=== PATIENT | female | born 1985 | race Caucasian/White ===

== ENCOUNTER 2017-08-16 15:59 | Emergency (ER) | payer OTHER ==
[~2017-08-16] VITALS: Ht 167.6 cm; Wt 90.7 kg
[~2017-08-16 15:59] MED LIST: FISH OIL 1,0001 EAC5; FOLIC ACID; HEPARIN; IBUPROFEN 600600 M1 PO; LOPRESSOR25; METOPROLOL PO; NOHOMEMEDICATIONS; NORCO 5-325 TA1 EACH PO; PRENATAL; ULTRAM 50MG TAB50 MG PO; ZOFRAN ODT4 MG PO
[2017-08-16] MEDS ORDERED: ROBAXIN 750 MG750 M1 PO (17:06)
[2017-08-16] MEDS ORDERED: IBUPROFEN 800800 M1 PO (17:06)
[2017-08-16 17:36] VITALS: BP 118/67
== END 2017-08-16 17:38 | disposition home or self-care (01) ==
LOC: M.ERS 15:59
DX: S63.592A Other specified sprain of left wrist, initial encounter (principal); S16.1XXA Strain of muscle, fascia and tendon at neck level, initial encounter; S46.812A Strain of other muscles, fascia and tendons at shoulder and upper arm level, left arm, initial encounter; I10 Essential (primary) hypertension; Z91.018 Allergy to other foods; Z88.1 Allergy status to other antibiotic agents; Z91.013 Allergy to seafood; V89.2XXA Person injured in unspecified motor-vehicle accident, traffic, initial encounter; Y93.I9 Activity, other involving external motion; Y92.89 Other specified places as the place of occurrence of the external cause; Y99.8 Other external cause status

== ENCOUNTER 2017-10-19 16:51 | Emergency (ER) | payer OTHER ==
[~2017-10-19] VITALS: Ht 167.6 cm; Wt 90.7 kg
[~2017-10-19 16:51] MED LIST changes: +IBUPROFEN 800800 M1 PO; +ROBAXIN 750 MG750 M1 PO
[2017-10-19 17:09] LABS: ABSOLUTE EOSINOPHILS 0.3 thou/uL (0.0-0.7); ABSOLUTE LYMPHOCYTES 3.5 thou/uL (0.8-5.3); ABSOLUTE MONOCYTES 0.6 thou/uL (0.0-1.2); ABSOLUTE NEUTROPHILS 6.5 thou/uL (1.6-8.1); BASOPHILS 0.4 %; HEMATOCRIT 40.2 % (37.0-47.0); HEMOGLOBIN 13.8 gm/dL (12.0-15.0); LYMPHOCYTES 31.7 %; MCH 28.6 pg (26.0-34.0); MCHC 34.4 g/dL (28.0-37.0); MCV 83.2 fL (80.0-100.0); MONOCYTES 5.9 %; MPV 7.2 fl. (7.2-11.1); NUCLEATED RBCS 0 /100WBC; PLATELET COUNT* 264 thou/uL (150-400); RBC 4.83 mil/uL (4.20-5.00); RDW-CV 13.5 % (10.5-14.5); WBC 10.9 thou/uL (4.0-11.0)
[2017-10-19 17:17] LABS: INR 1.1; PROTIME 10.5 Seconds (9.20-11.50)
[2017-10-19 17:18] LABS: ANION GAP 6 mmol/L (7-16); BUN 9 mg/dL (7-18); CALCIUM 8.5 mg/dL (8.5-10.1); CHLORIDE 105 mmol/L (98-107); CO2 28 mmol/L (21-32); CREATININE 0.8 mg/dL (0.6-1.3); GLUCOSE 92 mg/dL (70-99); POTASSIUM 3.5 mmol/L (3.5-5.1); SODIUM 139 mmol/L (136-145)
[2017-10-19 17:25] LABS: ALBUMIN 3.9 g/dL (3.4-5.0); ALKALINE PHOSPHATASE 49 U/L (46-116); SGOT 18 U/L (15-37); SGPT 41 U/L (30-65); TOTAL BILIRUBIN 0.4 mg/dL (<0.1-1.0); TOTAL PROTEIN 7.1 g/dL (6.4-8.2); TROPONIN-I LEVEL <0.06 ng/mL (<0.06)
[2017-10-19 18:08] VITALS: BP 122/72
--- NOTE | 2017-10-20 12:31 | EKG ---
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 And Former: Ofelia HO : 1985 Requested By: David Kennedy Order Number: [id number] MD: Collins Hinkle Measurements Intervals [place] Rate: 78 P: 24 DC: 155 QRS: -13 QRSD: 95 T: 30 QT: 385 QTc: 439 Interpretive Statements Sinus rhythm Compared to ECG 04/07/2012 03:11:58 Incomplete right bundle-branch block no longer present Electronically Signed On 10-20-2017 12:30:59 CDT by Collins Hinkle [email or web address] <ELECTRONICALLY SIGNED> By: Collins Hinkle MD, [facility] 10/20/17 1230 1656 [id number] Collins Hinkle MD, [facility] /EPI
== END 2017-10-19 18:08 | disposition home or self-care (01) ==
LOC: M.ERS 16:51
PROVIDERS: Family Medicine
DX: R20.2 Paresthesia of skin (principal); R51 Headache; I10 Essential (primary) hypertension; Z90.710 Acquired absence of both cervix and uterus; Z98.890 Other specified postprocedural states; Z88.8 Allergy status to other drugs, medicaments and biological substances